=== PATIENT | female | born 1970 | race Caucasian/White ===

== ENCOUNTER → 2020-11-30 | Outpatient (CLI) | payer BC ==
[2020-11-30 07:42] LABS: HEMOGLOBIN 12.8 gm/dl (12.3-15.3); RED BLOOD COUNT 5.09 M/UL (4.00-5.10)
[2020-11-30 07:56] LABS: BUN/CREATININE RATIO 17 (0-10)
[2020-12-01 13:10] LABS: IMMUNOGLOBULIN A, QN, SERUM 230 mg/dL (87-352); IMMUNOGLOBULIN G, QN, SERUM 1123 mg/dL (586-1602); IMMUNOGLOBULIN M, QN, SERUM 143 mg/dL (26-217)
[2020-12-01 16:12] LABS: T-TRANSGLUTAMINASE (TTG) IGA <2 U/mL (0-3); T-TRANSGLUTAMINASE (TTG) IGG <2 U/mL (0-5)
== END ==
LOC: LAB 07:06
PROVIDERS: Internal Medicine
DX: R10.9 Unspecified abdominal pain (principal); D53.9 Nutritional anemia, unspecified
CPT/HCPCS: 36415; 80053; 82728; 82784; 82785; 83036; 83516; 83540; 83550; 85027

== ENCOUNTER → 2020-12-27 | Outpatient (CLI) | payer BC | LOC: RAD 17:02 | DX: R05 Cough (principal); R07.81 Pleurodynia | CPT/HCPCS: 71046 ==

== ENCOUNTER → 2021-01-05 | Outpatient (CLI) | payer BC | LOC: HEART 5 07:30 | DX: R00.2 Palpitations (principal) ==